=== PATIENT | female | born 1960 | race Caucasian/White ===

== ENCOUNTER 2016-04-08 03:30 | Emergency (ER) | payer MEDICAID ==
[2015-09-18 07:39] VITALS: BMI 25.8
[~2016-04-08 03:30] MED LIST: AMBIEN5 MG PO; ATIVAN0.5 MG PO; ATIVAN2 MG PO; BACTRIM DS TABL1 TAB PO; ELIQUIS2.5 MG PO; HYDROCODONE-APA1 TAB PO; PERCOCET 10/3251 TA1 PO
[2016-04-08 04:47] LABS: BASOPHILS 0.1 % (0.0-2.0); EOSINOPHILS 0.1 % (0-7); HEMATOCRIT 39.1 % (36.0-48.0); HEMOGLOBIN 13.6 g/dL (12-16); IMMATURE GRANULOCYTES 0.4 % (0-5); LYMPHOCYTES 24.2 % (15-50); MCH 34.3 pg (26.0-34.0); MCHC 34.8 g/dL (31.0-37.0); MCV 98.7 fL (80.0-100.0); MEAN PLATELET VOLUME 9.7 fL (7.4-10.4); MONOCYTES 6.2 % (2-11); PLATELET COUNT 233 10x3/uL (130-400); RBC 3.96 10x6/uL (4.00-5.40); RDW 13.1 % (11.5-14.5); WBC 14.1 10x3/uL (4.8-10.8)
[2016-04-08 05:25] LABS: ALBUMIN 4.2 g/dL (3.4-5.0); ALKALINE PHOSPHATASE 84 U/L (46-116); ALT (SGPT) 19 U/L (10-68); BILIRUBIN - TOTAL 0.43 mg/dL (0.2-1.3); CALC OSMOLALITY 254 mosm/kg (275-300); CALCIUM 8.1 mg/dL (8.5-10.1); CARBON DIOXIDE 21.9 mmol/L (21.0-32.0); CHLORIDE - SERUM 88 mmol/L (98-107); CREATINE KINASE 306 UL (21-215); CREATININE - SERUM 0.9 mg/dL (0.6-1.3); GLUCOSE 88 mg/dL (74-106); MAGNESIUM - SERUM 1.7 mg/dL (1.8-2.4); POTASSIUM - SERUM 3.1 mmol/L (3.5-5.1); PROTEIN - SERUM 7.1 g/dL (6.4-8.2); SODIUM 128 mmol/L (136-145); UREA NITROGEN 9 mg/dL (7-18); eGFR NON AFRICAN AMERICAN 68 mL/min (90-120)
[2016-04-08 05:29] LABS: CKMB 3.1 U/L (0.0-3.6)
[2016-04-08 05:45] LABS: APPEARANCE CLOUDY (CLEAR); BILIRUBIN NEGATIVE (NEGATIVE); COLOR YELLOW (YELLOW); GLUCOSE NEGATIVE (NEGATIVE); KETONE NEGATIVE (NEGATIVE); LEUKOCYTE ESTERASE TRACE (NEGATIVE); NITRITE NEGATIVE (NEGATIVE); PROTEIN NEGATIVE (NEGATIVE); SPECIFIC GRAVITY 1.015 (1.005-1.020); UROBILINOGEN NORMAL (NORMAL)
[2016-04-08 05:51] LABS: UDS - AMPHET NEGATIVE QUAL (NEGATIVE); UDS - BARB NEGATIVE QUAL (NEGATIVE); UDS - BENZO NEGATIVE QUAL (NEGATIVE); UDS - COCAINE NEGATIVE QUAL (NEGATIVE); UDS - METH NEGATIVE QUAL (NEGATIVE); UDS - OPIATE POSITIVE QUAL (NEGATIVE); UDS - PCP NEGATIVE QUAL (NEGATIVE); UDS - THC NEGATIVE QUAL (NEGATIVE)
[2016-04-08 05:59] LABS: BACTERIA MANY /hpf (NONE SEEN); GRANULAR CAST RARE /lpf (NONE SEEN); HYALINE CAST OCC /lpf (NONE SEEN); RED CELLS - URINE 0-5 /hpf (0-5)
== END 2016-04-08 07:42 | disposition home or self-care (01) ==
LOC: D.ER 03:30
PROVIDERS: Emergency Medicine
DX: F10.129 Alcohol abuse with intoxication, unspecified (principal); E87.6 Hypokalemia; E83.42 Hypomagnesemia; N76.0 Acute vaginitis; R51 Headache; F17.200 Nicotine dependence, unspecified, uncomplicated

== ENCOUNTER → 2018-02-13 15:28 | Outpatient (CLI) | payer MEDICAID ==
[2015-09-18 07:39] VITALS: BMI 25.8
== END | disposition home or self-care (01) ==
LOC: D.MAMMO 10:30
DX: Z12.31 Encounter for screening mammogram for malignant neoplasm of breast (principal)

== ENCOUNTER 2018-11-03 10:50 | Emergency (ER) | payer MEDICAID ==
[~2018-11-03] VITALS: Ht 162.6 cm; Wt 63.6 kg
[2018-11-03 10:52] VITALS: Ht 162.6 cm; Wt 63.6 kg
[2018-11-03] MEDS ORDERED: ATIVAN2 MG PO (10:53)
[2018-11-03] MEDS ORDERED: ZOLPIDEM 12.5 MG (10:53)
[2018-11-03 11:40] LABS: BASOPHILS 0.2 % (0-2); EOSINOPHILS 0 % (0-7); HEMATOCRIT 39.5 % (36.0-48.0); HEMOGLOBIN 13.4 g/dL (12-16); IMMATURE GRANULOCYTES 0.3 % (0-5); MCH 35.8 pg (26.0-34.0); MCHC 33.9 g/dL (31.0-37.0); MCV 105.6 fL (80.0-100.0); MEAN PLATELET VOLUME 10.1 fL (7.4-10.4); MONOCYTES 8.2 % (2-11); NEUTROPHILS 82.3 % (40-80); PLATELET COUNT 233 10x3/uL (130-400); RBC 3.74 10x6/uL (4.00-5.40); RDW 13.8 % (11.5-14.5); WBC 12.1 10x3/uL (4.8-10.8)
[2018-11-03 12:27] LABS: ALBUMIN 4.5 g/dL (3.4-5.0); BILIRUBIN - TOTAL 0.67 mg/dL (0.2-1.3); CALCIUM 8.6 mg/dL (8.5-10.1); CARBON DIOXIDE 24.2 mmol/L (21.0-32.0); CREATININE - SERUM 1.3 mg/dL (0.6-1.3); POTASSIUM - SERUM 3.2 mmol/L (3.5-5.1); PROTEIN - SERUM 7.8 g/dL (6.4-8.2)
[2018-11-03 13:02] LABS: UDS - AMPHET NEGATIVE QUAL (NEGATIVE); UDS - BARB NEGATIVE QUAL (NEGATIVE); UDS - BENZO NEGATIVE QUAL (NEGATIVE); UDS - COCAINE NEGATIVE QUAL (NEGATIVE); UDS - OPIATE NEGATIVE QUAL (NEGATIVE); UDS - PCP NEGATIVE QUAL (NEGATIVE); UDS - THC POSITIVE QUAL (NEGATIVE)
[2018-11-03 13:07] LABS: APPEARANCE HAZY (CLEAR); COLOR DK YELLOW (YELLOW)
[2018-11-03 13:08] LABS: AMORPHOUS SEDIMENT <1+ /lpf (NONE SEEN); BACTERIA MODERATE /hpf (NONE SEEN); BILIRUBIN NEGATIVE (NEGATIVE); EPITHELIAL CELLS 0-5 /hpf (0-5); GLUCOSE NEGATIVE (NEGATIVE); GRANULAR CAST RARE /lpf (NONE SEEN); HYALINE CAST 0-5 /lpf (NONE SEEN); KETONE SMALL mg/dL (NEGATIVE); MUCUS >1+ /lpf (NONE SEEN); NITRITE NEGATIVE (NEGATIVE); PROTEIN 1+ mg/dL (NEGATIVE); RED CELLS - URINE 0-5 /hpf (0-5); SPECIFIC GRAVITY 1.015 (1.005-1.020); WAXY CAST RARE /lpf (NONE SEEN); WHITE CELLS - URINE 0-5 /hpf (0-5)
[2018-11-04 01:30] VITALS: BP 144/88
== END 2018-11-04 01:30 ==
LOC: D.ER 10:50
PROVIDERS: Family Medicine
DX: F29 Unspecified psychosis not due to a substance or known physiological condition (principal)

== ENCOUNTER 2019-03-09 09:00 | Outpatient (CLI) | payer MEDICAID ==
[2018-11-03 10:52] VITALS: BMI 24.0
[~2019-03-09 09:00] MED LIST changes: +ZOLPIDEM 12.5 MG
== END 2019-03-09 10:00 | disposition home or self-care (01) ==
LOC: D.MAMMO 09:00
PROVIDERS: ATTEND Family Medicine
DX: Z12.31 Encounter for screening mammogram for malignant neoplasm of breast (principal)